=== PATIENT | male | born 1935 | race Caucasian/White ===

== ENCOUNTER 2018-05-02 21:15 | Outpatient (REF) | payer MEDICARE, SELFPAY ==
[2018-05-02 22:13] LABS: TSH 1.07 uIU/mL (0.358-3.74)
[2018-05-02 22:14] LABS: Hemoglobin A1C 5.7 % (4.5-6.2)
[2018-05-03 22:17] LABS: ALT 31 U/L (12-78); AST 23 U/L (15-37); Albumin 3.9 g/dL (3.4-5.0); Alkaline Phosphatase 60 U/L (46-116); Bilirubin, Direct 0.18 mg/dL (0.00-0.20); Bilirubin, Total 0.5 mg/dL (0.2-1.0)
== END 2018-05-02 21:35 ==
LOC: NCHCN 21:15
PROVIDERS: PCP Internal Medicine; Visit Provider Internal Medicine
DX: R73.01 Impaired fasting glucose (principal); F10.10 Alcohol abuse, uncomplicated; I10 Essential (primary) hypertension; E78.5 Hyperlipidemia, unspecified; Z86.79 Personal history of other diseases of the circulatory system
CPT/HCPCS: 80076; 83036; 84443

== ENCOUNTER 2019-06-19 10:35 | Outpatient (REF) | payer MEDICARE, SELFPAY ==
[2019-06-19 21:20] LABS: ALT 39 U/L (16-63); AST 28 U/L (15-37); Albumin 4.2 g/dL (3.4-5.0); Alkaline Phosphatase 68 U/L (46-116); Anion Gap 12.2 mmol/L (3-11); BUN 10 mg/dL (7-18); Bilirubin, Total 0.7 mg/dL (0.2-1.0); CO2 29.8 mmol/L (21.0-32.0); Calcium 9.4 mg/dL (8.5-10.1); Calculated LDL 62 mg/dL; Chloride 96 mmol/L (98-107); Cholesterol 160 mg/dL (<200); Glucose 150 mg/dL (74-106); HDL Cholesterol 46 mg/dL (40-60); Potassium 4.1 mmol/L (3.5-5.1); Sodium 138 mmol/L (136-145); Total Protein 7.4 g/dL (6.4-8.2); Triglyceride 264 mg/dL (<150)
== END 2019-06-19 10:55 ==
LOC: NCHCN 10:35
PROVIDERS: PCP Internal Medicine; Visit Provider Internal Medicine
DX: I10 Essential (primary) hypertension (principal); R73.01 Impaired fasting glucose; Z13.6 Encounter for screening for cardiovascular disorders; E66.9 Obesity, unspecified
CPT/HCPCS: 80053; 80061

== ENCOUNTER 2020-07-06 14:51 | Outpatient (REF) | payer MEDICARE, SELFPAY ==
[2020-07-06 14:07] LABS: Hemoglobin A1C 5.9 % (<5.7)
[2020-07-06 14:08] LABS: ALT 48 U/L (16-63); AST 32 U/L (15-37); Albumin 4.2 g/dL (3.4-5.0); Alkaline Phosphatase 65 U/L (46-116); BUN 10 mg/dL (7-18); Bilirubin, Total 0.7 mg/dL (0.2-1.0); CREATININE 0.7 mg/dL (0.70-1.30); Calcium 9.4 mg/dL (8.5-10.1); Calculated LDL 52 mg/dL (<100); Chloride 93 mmol/L (98-107); Cholesterol 167 mg/dL (<200); Glucose 118 mg/dL (74-106); HDL Cholesterol 44 mg/dL (40-60); Potassium 4.3 mmol/L (3.5-5.1); Sodium 129 mmol/L (136-145); Total Protein 7.1 g/dL (6.4-8.2); Triglyceride 357 mg/dL (<150)
== END 2020-07-06 14:52 | disposition home or self-care (01) ==
LOC: NCHCN 14:51
PROVIDERS: PCP Internal Medicine; Visit Provider Internal Medicine
DX: I10 Essential (primary) hypertension (principal); E78.5 Hyperlipidemia, unspecified; R73.01 Impaired fasting glucose
CPT/HCPCS: 80053; 80061; 83036

== ENCOUNTER 2020-07-11 14:39 | Outpatient (REF) | payer MEDICARE, SELFPAY ==
[2020-07-11 14:42] LABS: Anion Gap 9.9 mmol/L (3-11); BUN 7 mg/dL (7-18); CO2 28.1 mmol/L (21.0-32.0); CREATININE 0.6 mg/dL (0.70-1.30); Calcium 9.1 mg/dL (8.5-10.1); Chloride 95 mmol/L (98-107); Glucose 160 mg/dL (74-106); Potassium 4.1 mmol/L (3.5-5.1); Sodium 133 mmol/L (136-145)
== END 2020-07-11 14:40 | disposition home or self-care (01) ==
LOC: NCHCN 14:39
PROVIDERS: PCP Internal Medicine; Visit Provider Internal Medicine
DX: I10 Essential (primary) hypertension (principal)
CPT/HCPCS: 80048

== ENCOUNTER 2020-07-18 21:17 | Outpatient (REF) | payer MEDICARE, SELFPAY ==
[2020-07-18 13:34] LABS: Anion Gap 9.5 mmol/L (3-11); BUN 11 mg/dL (7-18); CO2 30.5 mmol/L (21.0-32.0); CREATININE 0.7 mg/dL (0.70-1.30); Calcium 9.6 mg/dL (8.5-10.1); Chloride 99 mmol/L (98-107); Glucose 141 mg/dL (74-106); Potassium 4.2 mmol/L (3.5-5.1); Sodium 139 mmol/L (136-145)
== END 2020-07-18 21:18 | disposition home or self-care (01) ==
LOC: NCHCN 21:17
PROVIDERS: PCP Internal Medicine; Visit Provider Internal Medicine
DX: R60.0 Localized edema (principal)
CPT/HCPCS: 80048

== ENCOUNTER 2021-03-14 09:16 | Outpatient (REF) | payer MEDICARE, SELFPAY ==
[2021-03-14 15:02] LABS: ALT 32 U/L (16-63); AST 23 U/L (15-37); Albumin 4.3 g/dL (3.4-5.0); Alkaline Phosphatase 64 U/L (46-116); Anion Gap 10.7 mmol/L (3-11); BUN 9 mg/dL (7-18); Bilirubin, Total 0.5 mg/dL (0.2-1.0); CO2 28.3 mmol/L (21.0-32.0); CREATININE 0.7 mg/dL (0.70-1.30); Calcium 9.6 mg/dL (8.5-10.1); Chloride 95 mmol/L (98-107); Glucose 166 mg/dL (74-106); Potassium 4.1 mmol/L (3.5-5.1); Sodium 134 mmol/L (136-145); Total Protein 7.3 g/dL (6.4-8.2)
== END 2021-03-14 09:17 | disposition home or self-care (01) ==
LOC: NCHCN 09:16
PROVIDERS: PCP Internal Medicine; Visit Provider Internal Medicine
DX: I10 Essential (primary) hypertension (principal); E87.1 Hypo-osmolality and hyponatremia
CPT/HCPCS: 80053

== ENCOUNTER 2021-05-31 18:54 | Outpatient (REF) | payer MEDICARE, SELFPAY ==
[2021-05-31 15:13] LABS: Anion Gap 9.1 mmol/L (3-11); BUN 14 mg/dL (7-18); CO2 30.9 mmol/L (21.0-32.0); CREATININE 0.6 mg/dL (0.70-1.30); Calcium 9.2 mg/dL (8.5-10.1); Chloride 95 mmol/L (98-107); Glucose 108 mg/dL (74-106); Sodium 135 mmol/L (136-145)
== END 2021-05-31 18:55 | disposition home or self-care (01) ==
LOC: LBN 18:54
PROVIDERS: PCP Internal Medicine; Visit Provider Internal Medicine
DX: I10 Essential (primary) hypertension (principal)
CPT/HCPCS: 80048

== ENCOUNTER 2022-03-19 07:50 | Outpatient (REF) | payer MEDICARE, SELFPAY ==
[2022-03-19 15:56] LABS: Hemoglobin A1C 6.1 % (<5.7)
[2022-03-19 16:16] LABS: Anion Gap 11.5 mmol/L (3-11); BUN 9 mg/dL (7-18); CO2 25.5 mmol/L (21.0-32.0); CREATININE 0.7 mg/dL (0.70-1.30); Calcium 9.6 mg/dL (8.5-10.1); Chloride 99 mmol/L (98-107); Estimated GFR 89.73 (mL/min/1.73m2); Glucose 137 mg/dL (74-106); Sodium 136 mmol/L (136-145); Vitamin B12 201 pg/mL (193-986)
== END 2022-03-19 07:51 | disposition home or self-care (01) ==
LOC: NCHCN 07:50
PROVIDERS: PCP Internal Medicine; Visit Provider Internal Medicine
DX: R73.03 Prediabetes (principal)
CPT/HCPCS: 80048; 82607; 83036

== ENCOUNTER 2022-09-17 11:07 | Outpatient (REF) | payer MEDICARE, SELFPAY ==
[2022-09-17 15:41] LABS: HCT 44.7 % (40.0-50.0); HGB 15.5 g/dL (13.5-17.5); MCH 36.9 pg (27.0-33.0); MCHC 34.7 % (32.0-36.0); MPV 10.6 fL (8.0-11.0); Platelet Count 239 10^3/uL (130-400); RDW-SD 46.9 fL; WBC 8.63 10^3/uL (4.4-10.8)
[2022-09-17 16:03] LABS: MCV 106 fL (80-95)
[2022-09-17 16:07] LABS: Hemoglobin A1C 6.1 % (<5.7)
[2022-09-17 16:28] LABS: ALT 33 U/L (16-63); AST 29 U/L (15-37); Alkaline Phosphatase 72 U/L (46-116); Anion Gap 6.4 mmol/L (3-11); BUN 12 mg/dL (7-18); Bilirubin, Total 0.5 mg/dL (0.2-1.0); CO2 30.6 mmol/L (21.0-32.0); CREATININE 0.7 mg/dL (0.70-1.30); Calcium 9.1 mg/dL (8.5-10.1); Chloride 98 mmol/L (98-107); Estimated GFR 89.73 (mL/min/1.73m2); Glucose 126 mg/dL (74-106); Potassium 3.8 mmol/L (3.5-5.1); Sodium 135 mmol/L (136-145); Total Protein 7.5 g/dL (6.4-8.2); Vitamin B12 436 pg/mL (193-986)
== END 2022-09-17 11:08 | disposition home or self-care (01) ==
LOC: NCHCN 11:07
PROVIDERS: PCP Internal Medicine; Visit Provider Internal Medicine
DX: R73.03 Prediabetes (principal); E53.8 Deficiency of other specified B group vitamins; R74.8 Abnormal levels of other serum enzymes; D75.89 Other specified diseases of blood and blood-forming organs
CPT/HCPCS: 80053; 85027; 82607; 83036

== ENCOUNTER 2023-09-23 15:09 | Outpatient (REF) | payer MEDICARE, SELFPAY ==
[2023-09-23 14:49] LABS: HCT 42.8 % (40.0-50.0); HGB 15.4 g/dL (13.5-17.5); MCH 38.5 pg (27.0-33.0); MCV 107 fL (80-95); MPV 10.8 fL (8.0-11.0); Platelet Count 226 10^3/uL (130-400); RDW 11.8 % (11.8-14.1); RDW-SD 46.5 fL; WBC 8.22 10^3/uL (4.4-10.8)
[2023-09-23 15:04] LABS: Hemoglobin A1C 5.8 % (<5.7)
[2023-09-23 15:06] LABS: ALT 27 U/L (16-63); AST 26 U/L (15-37); Albumin 3.9 g/dL (3.4-5.0); Alkaline Phosphatase 68 U/L (46-116); BUN 11 mg/dL (7-18); Bilirubin, Total 0.7 mg/dL (0.2-1.0); CREATININE 0.6 mg/dL (0.70-1.30); Calcium 9.2 mg/dL (8.5-10.1); Chloride 95 mmol/L (98-107); Estimated GFR 93.43 (mL/min/1.73m2); Glucose 144 mg/dL (74-106); Sodium 135 mmol/L (136-145); Total Protein 7.2 g/dL (6.4-8.2)
== END 2023-09-23 15:10 | disposition home or self-care (01) ==
LOC: NCHCN 15:09
PROVIDERS: PCP Internal Medicine; Visit Provider Internal Medicine
DX: R73.03 Prediabetes (principal); F10.10 Alcohol abuse, uncomplicated
CPT/HCPCS: 80053; 85027; 83036

== ENCOUNTER 2023-11-26 15:20 | Outpatient (REF) | payer MEDICARE, SELFPAY ==
[2023-11-26 20:53] LABS: HCT 41.7 % (40.0-50.0); HGB 15.3 g/dL (13.5-17.5); MCH 39.5 pg (27.0-33.0); MCHC 36.7 % (32.0-36.0); MPV 9.9 fL (8.0-11.0); Platelet Count 290 10^3/uL (130-400); RBC 3.87 10^6/uL (4.36-5.78); RDW 11.8 % (11.8-14.1); RDW-SD 45.8 fL; WBC 9.01 10^3/uL (4.4-10.8)
[2023-11-26 21:04] LABS: BUN 14 mg/dL (7-18); CREATININE 0.7 mg/dL (0.70-1.30); Calcium 9.7 mg/dL (8.5-10.1); Chloride 97 mmol/L (98-107); Estimated GFR 89.18 (mL/min/1.73m2); Glucose 120 mg/dL (74-106); Sodium 135 mmol/L (136-145)
[2023-11-26 21:19] LABS: MCV 108 fL (80-95)
== END 2023-11-26 15:21 | disposition home or self-care (01) ==
LOC: NCHCN 15:20
PROVIDERS: PCP Internal Medicine; Visit Provider Internal Medicine
DX: E87.1 Hypo-osmolality and hyponatremia (principal); R73.03 Prediabetes; D75.89 Other specified diseases of blood and blood-forming organs; R74.8 Abnormal levels of other serum enzymes
CPT/HCPCS: 80048; 85027

== ENCOUNTER 2024-03-25 15:01 | Outpatient (REF) | payer MEDICARE, SELFPAY ==
[2024-03-25 15:19] LABS: HCT 45.6 % (40.0-50.0); HGB 16.4 g/dL (13.5-17.5); MCH 38.8 pg (27.0-33.0); MCV 108 fL (80-95); MPV 10.3 fL (8.0-11.0); Platelet Count 228 10^3/uL (130-400); RBC 4.23 10^6/uL (4.36-5.78); RDW 11.7 % (11.8-14.1); RDW-SD 45.8 fL; WBC 9.49 10^3/uL (4.4-10.8)
[2024-03-25 15:40] LABS: ALT 24 U/L (16-63); AST 25 U/L (15-37); Albumin 4.1 g/dL (3.4-5.0); Alkaline Phosphatase 71 U/L (46-116); Anion Gap 6.9 mmol/L (3-11); BUN 14 mg/dL (7-18); Bilirubin, Total 0.68 mg/dL (0.2-1.0); CO2 30.1 mmol/L (21.0-32.0); CREATININE 0.7 mg/dL (0.70-1.30); Calcium 9.5 mg/dL (8.5-10.1); Chloride 98 mmol/L (98-107); Estimated GFR 88.63 (mL/min/1.73m2); Glucose 109 mg/dL (74-106); Potassium 4.2 mmol/L (3.5-5.1); Sodium 135 mmol/L (136-145); Total Protein 7.6 g/dL (6.4-8.2); Uric Acid 3.8 mg/dL (3.5-7.2)
[2024-03-25 15:54] LABS: Hemoglobin A1C 5.7 % (<5.7)
[2024-03-25 16:20] LABS: Calculated LDL 44 mg/dL (<100); Cholesterol 145 mg/dL (<200); HDL Cholesterol 46 mg/dL (40-60); Triglyceride 278 mg/dL (<150); Vitamin B12 506 pg/mL (193-986)
[2024-03-25 22:56] LABS: PSA, Diagnostic <0.1 ng/mL (<=6.5)
== END 2024-03-25 15:02 | disposition home or self-care (01) ==
LOC: NCHCN 15:01
PROVIDERS: PCP Internal Medicine; Visit Provider Internal Medicine
DX: E78.5 Hyperlipidemia, unspecified (principal); R73.03 Prediabetes; E53.8 Deficiency of other specified B group vitamins; C61 Malignant neoplasm of prostate
CPT/HCPCS: 80053; 80061; 85027; 82607; 83036; 84153; 84550

== ENCOUNTER 2024-09-23 16:16 | Outpatient (REF) | payer MEDICARE, SELFPAY ==
[2024-09-23 15:39] LABS: HCT 43.7 % (40.0-50.0); HGB 15.6 g/dL (13.5-17.5); MCH 39.1 pg (27.0-33.0); MCHC 35.7 % (32.0-36.0); MPV 10.8 fL (8.0-11.0); Platelet Count 215 10^3/uL (130-400); RBC 3.99 10^6/uL (4.36-5.78); RDW 11.9 % (11.8-14.1); RDW-SD 47.8 fL; WBC 8.59 10^3/uL (4.4-10.8)
[2024-09-23 16:03] LABS: Anion Gap 9.9 mmol/L (3-11); BUN 17 mg/dL (7-18); CO2 28.1 mmol/L (21.0-32.0); CREATININE 0.7 mg/dL (0.70-1.30); Calcium 9.6 mg/dL (8.5-10.1); Chloride 101 mmol/L (98-107); Estimated GFR 88.63 (mL/min/1.73m2); Glucose 125 mg/dL (74-106); Potassium 4.4 mmol/L (3.5-5.1); Sodium 139 mmol/L (136-145)
[2024-09-23 16:15] LABS: MCV 110 fL (80-95)
== END 2024-09-23 16:17 | disposition home or self-care (01) ==
LOC: NCHCN 16:16
PROVIDERS: PCP Internal Medicine; Visit Provider Internal Medicine
DX: D75.89 Other specified diseases of blood and blood-forming organs (principal); E87.1 Hypo-osmolality and hyponatremia
CPT/HCPCS: 80048; 85027

== ENCOUNTER 2025-03-25 11:03 | Outpatient (REF) | payer MEDICARE, SELFPAY ==
[2025-03-25 15:45] LABS: Abs Immature Grans 0.03 10^3/uL (0.0-0.06); HCT 43.6 % (40.0-50.0); HGB 15.9 g/dL (13.5-17.5); Immature Grans % 0.4 %; MCH 39.8 pg (27.0-33.0); MCHC 36.5 % (32.0-36.0); MCV 109 fL (80-95); MPV 10.3 fL (8.0-11.0); Platelet Count 247 10^3/uL (130-400); RBC 3.99 10^6/uL (4.36-5.78); RDW 12.1 % (11.8-14.1); RDW-SD 48.3 fL; WBC 8.47 10^3/uL (4.4-10.8)
[2025-03-25 15:58] LABS: Macrocytosis 2+
[2025-03-25 16:21] LABS: Hemoglobin A1C 5.9 % (<5.7)
[2025-03-25 16:36] LABS: ALT 22 U/L (16-63); AST 20 U/L (15-37); Albumin 4.0 g/dL (3.4-5.0); Alkaline Phosphatase 56 U/L (46-116); Anion Gap 9.7 mmol/L (3-11); BUN 13 mg/dL (7-18); Bilirubin, Total 0.8 mg/dL (0.2-1.0); CO2 29.3 mmol/L (21.0-32.0); Calcium 9.3 mg/dL (8.5-10.1); Chloride 95 mmol/L (98-107); Estimated GFR 84.59 (mL/min/1.73m2); Glucose 148 mg/dL (74-106); Potassium 4.0 mmol/L (3.5-5.1); Sodium 134 mmol/L (136-145); Total Protein 7.6 g/dL (6.4-8.2); Vitamin B12 536 pg/mL (193-986)
== END 2025-03-25 11:04 | disposition home or self-care (01) ==
LOC: NCHCN 11:03
PROVIDERS: PCP Internal Medicine; Visit Provider Internal Medicine
DX: R73.03 Prediabetes (principal); D75.89 Other specified diseases of blood and blood-forming organs; E87.1 Hypo-osmolality and hyponatremia; E53.8 Deficiency of other specified B group vitamins
CPT/HCPCS: 80053; 82607; 83036; 85025